=== PATIENT | female | born 1965 | race Caucasian/White ===

== ENCOUNTER 2017-03-02 20:17 | Emergency (ER) | payer SELFPAY ==
[2017-03-02] MEDS ORDERED: ASPIRIN 81 MG CHEW TAB PO ONE (20:30)
[2017-03-02 20:37] LABS: BASOPHILS % 0.5 (0.0-1.5); MEAN CORPUSCULAR HEMOGLOBIN 30.4 pg (28.0-34.0); MEAN CORPUSCULAR VOLUME 95.5 fl (80.0-100.0); NEUTROPHILS # 4.3 # k/uL (1.4-7.7)
[2017-03-02] MEDS ORDERED: KETOROLAC TROMETHAMINE 30 MG/1ML VIAL IVP ONE (20:39)
[2017-03-02] MEDS ORDERED: LORazepam 2 MG/ML VIAL IVP ONE (21:00)
[2017-03-02 21:01] LABS: eGFR (African) > 60; eGFR (Non-African) > 60
[2017-03-02] MEDS ORDERED: fentaNYL CITRATE/PF 100 MCG/ 2ML AMP IVP ONE ×2 (21:06→21:57)
--- NOTE | 2017-03-02 21:10 | ED Physician Documentation ---
Chest Pain - HISTORIAN Historian: patient, spouse - HPI Stated Complaint: cp Chief Complaint: Chest Pain Additional Information: lt upper thorax sharp chest pain onset 1800 doing light work very sharp exaberates and remits-pt anxious moves presses on chest, area pain. no prev similar pain Onset: hours (1800) Timing: sudden onset, still present Duration: waxing, waning Last known Well Date: 03/02/17 Last Known Well Time: 18:00 Context: activity Severity: moderate Quality: sharp, stabbing Chest Pain Radiation: no radiation Chest Pain Signs/Symptoms: denies: nausea, vomiting, dyspnea Relieved By: nothing - ROS CONST: none MS/LYMPH: none GI/: none EYES/ENT: denies: problems with vision, sore throat SKIN/ENDO: none, rash NEURO/PSYCH: none - PAST HX [place] risk factors: hypertension, other (anxiety insomnia) DVT/PE Risk Factors: leg swelling Neuro deficit: none GI disease: none Lung disease: none Surgeries/Procedures: other (c-sect sinus) Allergies/Adverse Reactions: Allergies Allergy/AdvReac Type Severity Reaction Status Date / Time No Known Drug Allergies Allergy Verified 03/02/17 20:34 Home Medications: Ambulatory Orders Medication Instructions Recorded Alprazolam [Xanax] 0.25 mg PO DIRECTED PRN 03/02/17 - SOCIAL HX Smoking History: greater than 1 pack/day Alcohol Use: none Drug Use: none - FAMILY HX Family HX: none - VITAL SIGNS Vital Signs: Vital Signs Temp Pulse Resp BP Pulse Ox 97.8 F 90 22 162/86 99 03/02/17 20:17 03/02/17 20:27 03/02/17 20:17 03/02/17 20:17 03/02/17 20:29 - REVIEWED ASSESSMENTS Nursing Assessment Reviewed: Yes Vitals Reviewed: Yes ED Results Lab/Radiology - Lab Results Lab Results: Lab Results 03/02/17 03/02/17 03/02/17 20:33 20:31 20:31 WBC 8.00 K/ul K/ul (4.00-12.00) RBC 4.41 M/ul M/ul (3.90-5.20) Hgb 13.4 g/dL g/dL (12.0-16.0) Hct 42.1 % % (34.5-46.5) MCV 95.5 fl fl (80.0-100.0) MCH 30.4 pg pg (28.0-34.0) MCHC 31.9 g/dL g/dL (30.0-36.0) RDW 13.2 % % (11.3-14.3) Plt Count 305 K/mm3 K/mm3 (130-400) Neut % (Auto) 54.0 % % (39.0-79.0) Lymph % (Auto) 36.6 % % (16.0-50.0) [place] % (Auto) 5.0 % % (0.0-11.0) Eos % (Auto) 1.0 % % (0.0-6.8) Baso % (Auto) 0.5 (0.0-1.5) Neut # (Auto) 4.3 # k/uL # k/uL (1.4-7.7) Lymph # (Auto) 2.9 # k/uL # k/uL (0.6-4.0) [place] # (Auto) 0.4 # k/uL # k/uL (0.0-0.9) Eos # (Auto) 0.1 # k/uL # k/uL (0.0-0.6) Baso # (Auto) 0.0 # k/uL # k/uL (0.0-0.5) Reactive Lymphs % 2.9 % % (0.0-5.0) Reactive Lymphs # 0.2 # k/uL # k/uL (0.0-0.8) Sodium 134 mmol/L L mmol/L (136-145) Potassium 3.6 mmol/L mmol/L (3.5-5.1) Chloride 99 mmol/L mmol/L (98-107) Carbon Dioxide 28 mmol/L mmol/L (22-30) BUN 11 mg/dL mg/dL (7-17) Creatinine 0.80 mg/dL mg/dL (0.52-1.04) Estimated Creat Clear 113 Est GFR ( Amer) > 60 (60 - ) Est GFR (Non-Af Amer) > 60 (60 - ) Glucose 99 mg/dL mg/dL (74-106) Calcium 8.8 mg/dL mg/dL (8.4-10.2) Total Bilirubin 0.3 mg/dL mg/dL (0.2-1.3) AST 29 U/L U/L (15-46) ALT 42 U/L U/L (13-69) Alkaline Phosphatase 89 U/L U/L (38-126) Creatine Kinase 200 U/L H U/L (30-135) Troponin I Total Protein 7.8 g/dL g/dL (6.3-8.2) Albumin 4.0 g/dL g/dL (3.5-5.0) 03/02/17 20:30 WBC RBC Hgb Hct MCV MCH MCHC RDW Plt Count Neut % (Auto) Lymph % (Auto) [place] % (Auto) Eos % (Auto) Baso % (Auto) Neut # (Auto) Lymph # (Auto) [place] # (Auto) Eos # (Auto) Baso # (Auto) Reactive Lymphs % Reactive Lymphs # Sodium Potassium Chloride Carbon Dioxide BUN Creatinine Estimated Creat Clear Est GFR ( Amer) Est GFR (Non-Af Amer) Glucose Calcium Total Bilirubin AST ALT Alkaline Phosphatase Creatine Kinase Troponin I < 0.03 ng/mL L ng/mL (0.03-0.06) Total Protein Albumin - Orders Orders: ED Orders Category Date Time Status Continuous EKG monitoring Q30M Care 03/02/17 20:27 Active Continuous Pulse Oximetry Q30M Care 03/02/17 20:[address] IV Lock 1T Care 03/02/17 20:27 Active CHEST 1 VIEW [RAD] Stat Exams 03/02/17 Taken CBC/PLATELET/DIFF Routine Lab 03/02/17 20:31 Completed CMP Routine Lab 03/02/17 20:31 Received CREATINE KINASE Routine Lab 03/02/17 20:33 Received TROPONIN I (cTnI) Stat Lab 03/02/17 20:30 Completed Aspirin Med 03/02/17 20:30 Discontinued 324 mg PO NOW ONE Ketorolac Tromethamine [Toradol] Med 03/02/17 20:39 Discontinued 30 mg IVP NOW ONE LORazepam [Ativan] Med 03/02/17 21:00 Once 1 mg IVP NOW ONE fentaNYL CITRATE/PF [Duragesic] Med 03/02/17 21:06 Once 25 mcg IVP NOW ONE EKG WITH COMPARISON Stat Ther 03/02/17 Ordered Chest Pain Physical Exam - EXAM General Appearance: moderate distress EENT: eye inspection normal Neck: nml inspection, no carotid bruit. No: JVD present, lymphadenopathy Respiratory: no resp. distress, nml breath sounds, manifests distinct pain on movement, left, trunk. No: chest non-tender, resp.distress, decreased air movement, wheezes, rales, rhonchi CVS: reg. rate & rhythm, no murmur, no gallop, pulses equal Abdomen: soft, non-tender Skin: warm/dry, normal color. No: mottled Extremities: non-tender, normal range of motion Neuro: oriented X3, motor nml, sensation nml, mood/affect nml Discharge Clincal Impression: atypical chest pain, lt low cervical upper thorax radiculopat, -hy, neck thoracic muscle spasm Referrals: Primary Doctor,No [Primary Care Provider] - 2 Days Comments: home dc cigs meds incl ibu 600 tid--f/u w/pcp or rt ed soon-ginger if gets worse Condition: Good Disposition: 01 HOME, SELF-CARE Decision to Admit: NO Decision Time: 22:08
[2017-03-02] MEDS ORDERED: ORPHENADRINE CITRATE 60 MG/2ML IV ONE (21:50)
[2017-03-03 01:39] VITALS: BP 137/87
--- NOTE | 2017-03-03 05:17 | Diagnostic Imaging Report ---
JONY PINEDA [facility] [address] [facility] [address] [address] Report Submission Date: Mar 02, 2017 8:54:55 PM [employer]IST Patient Study Name: MARQUES LA Date: Mar 02, 2017 8:46:56 PM [employer]IST Modality Type: CR Gender: F Description: CHEST : 67 Institution: [facility] Physician: JONY PINEDA Chest, AP portable History: Chest pain Findings: No infiltrate, effusion or pneumothorax is present. Heart size, mediastinum and pulmonary vascularity are normal. Impression: No active disease. Electronically signed on Mar 02, 2017 8:54:55 PM [employer]EVERAGE SPECIALIST by: Tony PICHARDO
== END 2017-03-02 22:24 | disposition home or self-care (01) ==
LOC: ED 20:17
DX: R07.89 Other chest pain (principal); M54.13 Radiculopathy, cervicothoracic region
CPT/HCPCS: 71010; 80053; 82550; 84484; 85025; 93005; J1885; J2060; J2360; J3010; 96374; 96375; 99283; S1016